=== PATIENT | male | born 1975 | race Caucasian/White ===

== ENCOUNTER → 2016-09-27 | Outpatient (CLI) | payer OTHER ==
--- NOTE | 2016-09-27 14:45 | MR ---
EXAMINATION TYPE: MR lumbar spine wo con DATE OF EXAM: 09/27/2016 COMPARISON: 08/05/2014 HISTORY: Low back pain CONTRAST: 0 mL intravenous MultiHance. TECHNIQUE: Multiplanar, multisequence images of the lumbar spine were acquired. FINDINGS: L5-S1: No significant disc bulge or disc herniation. No spinal canal stenosis. No foraminal stenosi s. . L4-L5: No significant disc bulge or disc herniation. No spinal canal stenosis. No foraminal stenosi s. . L3-L4: No significant disc bulge or disc herniation. No spinal canal stenosis. No foraminal stenosi s. . L2-L3: Minimal disc bulging is anterior thecal sac flattening. No AP spinal canal stenosis present. D isc desiccation is present. L1-L2: Mild central and left paracentral disc bulge has mild anterior thecal sac compression. No AP s alexandra canal stenosis present. Minimal central subligamentous disc extension may be present. This has minimal anterior thecal sac compression. No cord contact is evident. No spinal canal stenosis. No f oraminal stenosis. T12-L1: No significant disc bulge or disc herniation. No spinal canal stenosis. No foraminal stenos is. . Disc desiccation is present L1-2 and L2-3. Findings appear stable from comparison. IMPRESSION: 1. Minimal central and left paracentral disc bulge with anterior thecal sac flattening L1-2. 2. Minimal disc bulge with anterior thecal sac flattening L2-3. 3. Exam is stable from 08/05/2014 MRI lumbar spine
== END | disposition home or self-care (01) ==
LOC: RADMRIMAIN 08:05
PROVIDERS: ATTEND Nurse Practitioner Acute Care
DX: M51.26 Other intervertebral disc displacement, lumbar region (principal)
CPT/HCPCS: 72148

== ENCOUNTER → 2017-08-23 | Outpatient (CLI) | payer OTHER ==
--- NOTE | 2017-08-23 11:24 | MR ---
EXAMINATION TYPE: MR thoracic spine wo con DATE OF EXAM: 08/23/2017 COMPARISON: 08/05/14 HISTORY: Back pain Standard multiplanar, multisequence MRI departmental protocol Multiplanar, multisequence images of the thoracic spine were acquired. Diffusion weighted imaging was performed. FINDINGS: The thoracic spine maintains normal vertebral body heights and alignment. Multilevel Schmor l's nodes are noted with intervertebral disc desiccation most pronounced within the lower thoracic sp ine. Small vertebral body hemangiomas are seen that are T2/T1 hyperintense and benign. Spinal cord si gnal is within normal limits throughout. No extradural fluid collection is identified. T1-T7: No significant disc disease, spinal canal stenosis or neural foraminal narrowing. T7-T8: Small right eccentric disc bulge creates mild right neural foraminal narrowing. No spinal sonia l stenosis or left neural foraminal narrowing. T8-T9: Intervertebral disc desiccation is seen in addition to the known very small right paracentral disc herniation without spinal canal stenosis or neural foraminal narrowing. T9-T10: Disc desiccation is seen without spinal canal stenosis or neural foraminal narrowing. T10-T11: There is a small broad-based disc bulge without spinal canal stenosis or neural foraminal na rrowing. T11-T12: Disc desiccation without spinal canal stenosis or neural foraminal narrowing. IMPRESSION: 1. New small right eccentric disc bulge at T7-T8 creating mild right neural foraminal narrowing. 2. Unchanged very small right paracentral disc herniation at T8-T9 in comparison to 2015 without neur al foraminal narrowing or spinal canal stenosis. 3. Mild multilevel degenerative disc disease without spinal canal stenosis, vertebral body height los s or malalignment.
== END | disposition home or self-care (01) ==
LOC: RADMRIMAIN 08:57
PROVIDERS: ATTEND Psychiatry & Neurology Neurology
DX: M99.72 Connective tissue and disc stenosis of intervertebral foramina of thoracic region (principal); M51.24 Other intervertebral disc displacement, thoracic region; M51.34 Other intervertebral disc degeneration, thoracic region
CPT/HCPCS: 72146

== ENCOUNTER → 2018-03-05 | Outpatient (CLI) | payer OTHER ==
--- NOTE | 2018-03-07 09:32 | P.ARTDOP ---
Arterial Doppler LOWER EXTREMITY ARTERIAL DOPPLER: DATE OF SERVICE: 03/05/2018 Reason for study: Toe numbness with discoloration. Doppler waveforms: Multiphasic bilaterally throughout. Pulse volume recording: Normal configuration. Pressure gradients: None. Ankle-brachial indices: Greater than 1 bilaterally. Toe pressures: 86 on the right, 74 on the left Impression: Normal study.
== END | disposition home or self-care (01) ==
LOC: RADUSWWP 13:59
PROVIDERS: ATTEND Family Medicine
DX: I73.89 Other specified peripheral vascular diseases (principal); R20.9 Unspecified disturbances of skin sensation; E11.9 Type 2 diabetes mellitus without complications
CPT/HCPCS: 93923

== ENCOUNTER → 2018-03-05 | Outpatient (CLI) | payer OTHER | END | disposition home or self-care (01) | LOC: LABWHC1 10:50 | PROVIDERS: ATTEND Nurse Practitioner Acute Care | DX: Z01.812 Encounter for preprocedural laboratory examination (principal) | CPT/HCPCS: 36415; 82565; 84520 ==

== ENCOUNTER → 2019-01-24 | Outpatient (CLI) | payer OTHER ==
[2019-01-24 16:52] LABS: Appearance,Urine Clear (Clear); Bilirubin,Urine Negative (Negative); Blood,Urine Negative (Negative); Color,Urine Yellow; Glucose,Urine (UA) Negative (Negative); Ketones,Urine Negative (Negative); Leukocyte Esterase,Urine Negative (Negative); Nitrite,Urine Negative (Negative); PH, Urine 6.5 (5.0-8.0); Protein,Urine Negative (Negative); Urobilinogen,Urine <2.0 mg/dL (<2.0)
[2019-01-24 16:53] LABS: Basophils % (A) 0 %; Eosinophils # (A) 0.1 k/uL (0-0.7); Eosinophils % (A) 1 %; HCT 39.3 % (39.0-53.0); HGB 12.9 gm/dL (13.0-17.5); Lymphocytes # (A) 1.4 k/uL (1.0-4.8); Lymphocytes % (A) 30 %; MCH 28.5 pg (25.0-35.0); MCHC 32.9 g/dL (31.0-37.0); MCV 86.7 fL (80.0-100.0); Mean Platelet Volume 8.7; Monocytes # (A) 0.3 k/uL (0-1.0); Monocytes % (A) 6 %; Neutrophils # (A) 2.9 k/uL (1.3-7.7); Neutrophils % (A) 60 %; Platelet Count 204 k/uL (150-450); RBC 4.53 m/uL (4.30-5.90); RDW 12.4 % (11.5-15.5); WBC 4.9 k/uL (3.8-10.6)
[2019-01-25 00:27] LABS: Albumin 4.4 g/dL (3.80-4.90); Albumin/Globulin Ratio 2.44 (1.60-3.17); Anion Gap 7.8 mmol/L (4.00-12.00); Carbon Dioxide 27.2 mmol/L (21.6-31.8); Globulin 1.8 g/dL (1.6-3.3); Non-African American GFR(CKD) 107.9 (60.0-200.0); Potassium 4.1 mmol/L (3.5-5.5); Total Bilirubin 0.2 mg/dL (0.3-1.2); Total Protein 6.2 g/dL (6.2-8.2)
== END | disposition home or self-care (01) ==
LOC: LABWHC1 16:27
PROVIDERS: ATTEND Neurological Surgery
DX: M50.123 Cervical disc disorder at C6-C7 level with radiculopathy (principal)
CPT/HCPCS: 36415; 80053; 81003; 85025; 85730; 86850; 86900; 86901; 87070

== ENCOUNTER 2019-02-06 02:35 | Emergency (ER) | payer OTHER ==
[2019-02-06] MEDS ORDERED: SODIUM CHLORIDE 0.9% 1,000 ML IV STA (03:10)
[2019-02-06] MEDS ORDERED: ONDANSETRON 4 MG/2 ML VIAL IVP STA (03:10)
[2019-02-06 03:35] LABS: Basophils % (A) 0 %; Eosinophils # (A) 0.1 k/uL (0-0.7); Eosinophils % (A) 1 %; HCT 40.2 % (39.0-53.0); HGB 13.8 gm/dL (13.0-17.5); Lymphocytes # (A) 1.4 k/uL (1.0-4.8); Lymphocytes % (A) 13 %; MCH 29.3 pg (25.0-35.0); MCHC 34.3 g/dL (31.0-37.0); MCV 85.5 fL (80.0-100.0); Mean Platelet Volume 9.1; Monocytes # (A) 0.6 k/uL (0-1.0); Monocytes % (A) 5 %; Neutrophils # (A) 8.7 k/uL (1.3-7.7); Neutrophils % (A) 79 %; Platelet Count 249 k/uL (150-450); RDW 12.6 % (11.5-15.5); WBC 10.9 k/uL (3.8-10.6)
--- NOTE | 2019-02-06 03:44 | ED ---
Nausea/Vomiting/Diarrhea HPI - General Chief complaint: Nausea/Vomiting/Diarrhea Stated complaint: post-op complications, nausea Time Seen by Provider: 02/06/19 03:10 Source: patient Mode of arrival: ambulatory Limitations: no limitations - History of Present Illness Initial comments: Jose Miguel is a previously healthy 43-year-old male presents the emergency department today for evaluation of sudden onset of nausea, vomiting and vertigo. Patient reports that he was up late doing gifts with children when he developed nausea and vomiting. He then noted that he became very dizzy felt like the room was spinning around him. Patient states that he had multiple episodes of nonbloody nonbilious emesis. He then sat with his head between his knees and relax for a while, he began to feel better but not completely resolved so he decided to drive himself to the ER for evaluation. Upon evaluation patient reports that the spinning sensation has improved significantly and that he no longer feels like he could vomit because he feels his stomach symptoms but he does feel somewhat nauseated. Patient can identify any exacerbating or relieving factors. Reports this came on suddenly resolves suddenly. He does express concern that this may be related to something he ate. Patient states that his primary reason for coming the ER is because he had a recent cervical spinal fusion and wanted to make sure that he didn't injure himself vomiting. - Related Data Home Medications Medication Instructions Recorded Confirmed ALPRAZolam [Xanax] 0.25 mg PO Q8H PRN 02/19/14 09/21/15 Primidone [Mysoline] 50 mg PO HS 02/19/14 09/21/15 Sertraline [Zoloft] 150 mg PO DAILY 02/19/14 09/21/15 HYDROcodone/APAP 7.5-325MG [[place] 1 tab PO BID 07/06/15 09/21/15 7.5] Morphine Sulfate [Ms Contin] 15 mg PO Q12HR 07/06/15 09/21/15 Omeprazole 40 mg PO AC-BRKFST 07/06/15 09/21/15 metFORMIN HCL [Glucophage] 500 mg PO DAILY 09/21/15 09/21/15 Previous Rx's Medication Instructions Recorded Meclizine [Antivert] 25 mg PO TID PRN #12 tab 02/06/19 Allergies Allergy/AdvReac Type Severity Reaction Status Date / Time Gadolinium-Containing Allergy Unknown Verified 02/06/19 02:48 Contrast Medi Childhood Review of Systems ROS Statement: Those systems with pertinent positive or pertinent negative responses have been documented in the HPI. ROS Other: All systems not noted in ROS Statement are negative. Past Medical History Past Medical History: Asthma, GERD/Reflux, Musculoskeletal Disorder, Neurologic Disorder, Osteoarthritis (OA) Additional Past Medical History / Comment(s): disc problems back, hand tremors History of Any Multi-Drug Resistant Organisms: None Reported Past Surgical History: Orthopedic Surgery Additional Past Surgical History / Comment(s): arthroscopy right knee AND LEFT KNEE,right shoulder surg. LEFT WRIST VASCULAR SX , c-spine Past Anesthesia/Blood Transfusion Reactions: No Reported Reaction Past Psychological History: Anxiety Smoking Status: Never smoker Past Alcohol Use History: Occasional Past Drug Use History: None Reported General Exam - General Exam Comments Initial Comments: Physical Exam GENERAL: Patient is well-developed and well-nourished. Patient is nontoxic and well-hydrated and is in no distress. HENT: Normocephalic, Atraumatic. EYES: PERRL, EOMI PULMONARY: Unlabored respirations. No audible rales rhonchi or wheezing was noted. CARDIOVASCULAR: There is a regular rate and rhythm without any murmurs gallops or rubs. ABDOMEN: Soft and nontender with normal bowel sounds. SKIN: Skin is clear with no lesions or rashes and otherwise unremarkable. : Deferred NEUROLOGIC: Patient is alert and oriented x3. Moving all extremities spontaneously No reproducible or change in his symptoms, no nystagmus elicited during head turning Normal finger-nose Normal heel barrera MUSCULOSKELETAL: Normal extremities with adequate strength and full range of motion. No lower extremity swelling or edema. No calf tenderness. PSYCHIATRIC: Normal psychiatric evaluation. Limitations: no limitations Course Vital Signs 02/06/19 02/06/19 02/06/19 02:45 03:48 06:05 Temperature 97.9 F 98.7 F 97.8 F Pulse Rate 122 H 100 88 Respiratory 22 18 18 Rate Blood Pressure 146/82 122/60 132/72 O2 Sat by Pulse 99 100 100 Oximetry Medical Decision Making - Medical Decision Making Patient was seen and evaluated history is of pain from the patient Patient with sudden onset of vertigo while unwrapping presents with his children, nausea and vomiting associated with vertigo, symptoms seem to be relieved upon arrival. Patient's neurologic exam is unremarkable. Labs were reviewed patient was given IV fluids upon reevaluation patient is having minimal symptoms. He is given meclizine and CT angiogram of the head and neck were obtained patient does state that he had a MRI of the brain a couple of months ago when he was expressing what he referred to as lightening shocks of vision. CTA with no acute findings. Patient was reevaluated and reports complete resolution of symptoms after Antivert at this time he feels comfortable with plan for discharge home. An additional 50 mg dose of Antivert was ordered for the patient to take home as it is and is concerned he would not have access to a pharmacy. Patient was given a prescription for Antivert discharged home in stable condition. She was asymptomatic at the time of di becca. - Lab Data Result diagrams: 02/06/19 03:21 02/06/19 03:21 Lab Results 02/06/19 02/06/19 02/06/19 Range/Units 03:21 03:21 03:28 WBC 10.9 H (3.8-10.6) k/uL RBC 4.70 (4.30-5.90) m/uL Hgb 13.8 (13.0-17.5) gm/dL Hct 40.2 (39.0-53.0) % MCV 85.5 (80.0-100.0) fL MCH 29.3 (25.0-35.0) pg MCHC 34.3 (31.0-37.0) g/dL RDW 12.6 (11.5-15.5) % Plt Count 249 (150-450) k/uL Neutrophils % 79 % Lymphocytes % 13 % Monocytes % 5 % Eosinophils % 1 % Basophils % 0 % Neutrophils # 8.7 H (1.3-7.7) k/uL Lymphocytes # 1.4 (1.0-4.8) k/uL Monocytes # 0.6 (0-1.0) k/uL Eosinophils # 0.1 (0-0.7) k/uL Basophils # 0.0 (0-0.2) k/uL Sodium 140 (137-145) mmol/L Potassium 4.4 (3.5-5.1) mmol/L Chloride 103 (98-107) mmol/L Carbon Dioxide 26 (22-30) mmol/L Anion Gap 11 mmol/L BUN 18 (9-20) mg/dL Creatinine 0.71 (0.66-1.25) mg/dL Est GFR (CKD-EPI)AfAm >90 (>60 ml/min/1.73 sqM) Est GFR (CKD-EPI)NonAf >90 (>60 ml/min/1.73 sqM) Glucose 190 H (74-99) mg/dL Calcium 9.4 (8.4-10.2) mg/dL Total Bilirubin 0.4 (0.2-1.3) mg/dL AST 28 (17-59) U/L ALT 37 (4-49) U/L Alkaline Phosphatase 92 (38-126) U/L Total Protein 7.4 (6.3-8.2) g/dL Albumin 4.4 (3.5-5.0) g/dL Lipase 71 (23-300) U/L Influenza Type A RNA Not Detected (Not Detectd) Influenza Type B (PCR) Not Detected (Not Detectd) Disposition Clinical Impression: Vertigo Disposition: HOME SELF-CARE Condition: Stable Instructions (If sedation given, give patient instructions): Acute Nausea and Vomiting (ED) Prescriptions: Meclizine [Antivert] 25 mg PO TID PRN #12 tab PRN Reason: Vertigo Is patient prescribed a controlled substance at d/c from ED?: No Referrals: Long Yost Jr, DO [Primary Care Provider] - 1-2 days
[2019-02-06 03:51] LABS: ALT 37 U/L (4-49); AST 28 U/L (17-59); African American GFR (CKD) >90 (>60 ml/min/1.73 sqM); Albumin 4.4 g/dL (3.5-5.0); Alkaline Phosphatase 92 U/L (38-126); Anion Gap 11 mmol/L; Blood Urea Nitrogen 18 mg/dL (9-20); Calcium 9.4 mg/dL (8.4-10.2); Carbon Dioxide 26 mmol/L (22-30); Chloride 103 mmol/L (98-107); Glucose 190 mg/dL (74-99); Non-African American GFR(CKD) >90 (>60 ml/min/1.73 sqM); Potassium 4.4 mmol/L (3.5-5.1); Sodium 140 mmol/L (137-145); Total Bilirubin 0.4 mg/dL (0.2-1.3); Total Protein 7.4 g/dL (6.3-8.2)
[2019-02-06 03:56] VITALS: RESP 18
[2019-02-06] MEDS ORDERED: MECLIZINE 12.5 MG TAB PO STA ×2 (04:38→05:57)
--- NOTE | 2019-02-06 05:46 | CT ---
EXAM: CT Angiography Head With Intravenous Contrast CLINICAL HISTORY: Its. reason CT Reason: vertigo TECHNIQUE: Axial computed tomographic angiography images of the head with intravenous contrast using CT angiography protocol. This CT exam was performed using one or more of the following dose reduction techniques: automated exposure control, adjustment of the mA and/or kV according to patient size, and/or use of iterative reconstruction technique. MIP reconstructed images were created and reviewed. COMPARISON: No relevant prior studies available. FINDINGS: Right internal carotid artery: No acute findings. Intracranial segment is patent with no significant stenosis. No aneurysm. Right anterior cerebral artery: Unremarkable. No occlusion or significant stenosis. No aneurysm. Right middle cerebral artery: Unremarkable. No occlusion or significant stenosis. No aneurysm. Right posterior cerebral artery: origin of the right posterior cerebral artery. No occlusion or significant stenosis. No aneurysm. Right vertebral artery: Small right vertebral artery terminates in posterior inferior cerebellar artery. Left internal carotid artery: No acute findings. Intracranial segment is patent with no significant stenosis. No aneurysm. Left anterior cerebral artery: Unremarkable. No occlusion or significant stenosis. No aneurysm. Left middle cerebral artery: Unremarkable. No occlusion or significant stenosis. No aneurysm. Left posterior cerebral artery: Unremarkable. No occlusion or significant stenosis. No aneurysm. Left vertebral artery: Dominant left vertebral artery. Basilar artery: Unremarkable. No occlusion or significant stenosis. No aneurysm. IMPRESSION: No large vessel occlusion or aneurysm. EXAM: CT Angiography Neck With Intravenous Contrast CLINICAL HISTORY: Its. reason CT Reason: vertigo TECHNIQUE: Axial computed tomographic angiography images of the neck with intravenous contrast using CT angiography protocol. This CT exam was performed using one or more of the following dose reduction techniques: automated exposure control, adjustment of the mA and/or kV according to patient size, and/or use of iterative reconstruction technique. MIP reconstructed images were created and reviewed. COMPARISON: No relevant prior studies available. FINDINGS: VASCULATURE: Right common carotid artery: Unremarkable. No significant stenosis. No dissection or occlusion. Right internal carotid artery: There is some noncalcified plaque in the bilateral carotid bifurcations, proximal internal carotid arteries. Approximately 40% narrowing of the proximal right internal carotid artery. Right external carotid artery: Unremarkable. No occlusion. Right vertebral artery: Unremarkable. No significant stenosis. No dissection or occlusion. Left common carotid artery: Unremarkable. No significant stenosis. No dissection or occlusion. Left internal carotid artery: Less than 10% narrowing of the proximal left internal carotid artery. Left external carotid artery: Unremarkable. No occlusion. Left vertebral artery: Dominant left vertebral artery. No significant stenosis. No dissection or occlusion. NECK: Bones/joints: Interbody fusion at C6-7. No acute fracture. No dislocation. Soft tissues: Unremarkable as visualized. No mass. CAROTID STENOSIS REFERENCE USING NASCET CRITERIA: % ICA stenosis = (1 - narrowest ICA diameter/diameter of distal cervical ICA) x 100. Mild - <50% stenosis. Moderate - 50-69% stenosis. Severe - 70-94% stenosis. Near occlusion - 95-99% stenosis. Occluded - 100% stenosis. IMPRESSION: No significant stenosis of the carotid or vertebral arteries. No dissection.
[2019-02-06 06:07] VITALS: BP 132/72; PULSE 88; TEMP 97.8
== END 2019-02-06 06:07 | disposition home or self-care (01) ==
LOC: EC 02:35
DX: R42 Dizziness and giddiness (principal); R11.2 Nausea with vomiting, unspecified; R19.7 Diarrhea, unspecified; K21.9 Gastro-esophageal reflux disease without esophagitis; M19.90 Unspecified osteoarthritis, unspecified site; F41.9 Anxiety disorder, unspecified; Z79.891 Long term (current) use of opiate analgesic; Z79.84 Long term (current) use of oral hypoglycemic drugs; Z79.899 Other long term (current) drug therapy; Z91.041 Radiographic dye allergy status; Z98.1 Arthrodesis status
CPT/HCPCS: 36415; 80053; 83690; 85025; 87502; 70496; 70498; 99284; 96374; 96361; J2405; Q9967

== ENCOUNTER 2023-04-20 10:02 | Emergency (ER) | payer OTHER ==
[2023-04-20 10:14] VITALS: RESP 18
--- NOTE | 2023-04-20 10:32 | ED ---
Back Pain HPI - General Chief Complaint: Back Pain/Injury Stated Complaint: Back pain Time Seen by Provider: 04/20/23 10:31 Source: patient, EMS, RN notes reviewed Limitations: no limitations - History of Present Illness Initial Comments: Patient is a 48-year-old male presented to the ER via EMS with chief complaint of back pain. Patient follows up with Dr. Sharma and receives morphine, norco and gabapentin. He has a known history of multiple herniated disks. He states he missed his appointment to refill his prescription. He states he called Dr. Sharma's office and is waiting for them to return his call. He has been out of his morphine for about a day. He took his norco and gabapentin today. he is endorsing body aches, nausea, vomiting and diarrhea. He states he is having generalized abdominal pain. Denies any new injuries, new symptoms with his back pain. Denies any saddle paresthesias, bowel or bladder incontinence, fevers, IV drug use. - Related Data Home Medications Medication Instructions Recorded Confirmed ALPRAZolam [Xanax] 0.25 mg PO Q8H PRN 02/19/14 09/21/15 Primidone [Mysoline] 50 mg PO HS 02/19/14 09/21/15 Sertraline [Zoloft] 150 mg PO DAILY 02/19/14 09/21/15 HYDROcodone/APAP 7.5-325MG [[place] 1 tab PO BID 07/06/15 09/21/15 7.5] Morphine Sulfate [Ms Contin] 15 mg PO Q12HR 07/06/15 09/21/15 Omeprazole 40 mg PO AC-BRKFST 07/06/15 09/21/15 metFORMIN HCL [Glucophage] 500 mg PO DAILY 09/21/15 09/21/15 Previous Rx's Medication Instructions Recorded Meclizine [Antivert] 25 mg PO TID PRN #12 tab 02/06/19 Allergies Allergy/AdvReac Type Severity Reaction Status Date / Time Gadolinium-Containing Allergy Unknown Verified 02/06/19 02:48 Contrast Medi Childhood Review of Systems ROS Statement: Those systems with pertinent positive or pertinent negative responses have been documented in the HPI. ROS Other: All systems not noted in ROS Statement are negative. Past Medical History Past Medical History: Asthma, GERD/Reflux, Musculoskeletal Disorder, Neurologic Disorder, Osteoarthritis (OA) Additional Past Medical History / Comment(s): disc problems back, hand tremors History of Any Multi-Drug Resistant Organisms: None Reported Past Surgical History: Orthopedic Surgery Additional Past Surgical History / Comment(s): arthroscopy right knee AND LEFT KNEE,right shoulder surg. LEFT WRIST VASCULAR SX , c-spine Past Anesthesia/Blood Transfusion Reactions: No Reported Reaction Past Psychological History: Anxiety Past Alcohol Use History: Occasional Past Drug Use History: None Reported General Exam Limitations: no limitations General appearance: alert, in no apparent distress, other (Patient lying in position and frequently moving) Head exam: Present: atraumatic, normocephalic, normal inspection Neck exam: Present: normal inspection. Absent: tenderness, meningismus, lymphadenopathy Respiratory exam: Present: normal lung sounds bilaterally. Absent: respiratory distress, wheezes, rales, rhonchi, stridor Cardiovascular Exam: Present: regular rate, normal rhythm, normal heart sounds. Absent: systolic murmur, diastolic murmur, rubs, gallop, clicks GI/Abdominal exam: Present: soft, tenderness (generalized), normal bowel sounds Back exam: Present: normal inspection Neurological exam: Present: alert, oriented X3, CN II-XII intact Psychiatric exam: Present: normal affect, normal mood Skin exam: Present: warm, dry, intact, normal color. Absent: rash Course Vital Signs 04/20/23 04/20/23 04/20/23 10:09 11:13 12:44 Temperature 98.1 F 98 F Pulse Rate 91 80 98 Respiratory 18 18 18 Rate Blood Pressure 133/91 148/106 157/97 O2 Sat by Pulse 93 L 98 100 Oximetry Medical Decision Making - Medical Decision Making Was pt. sent in by a medical professional or institution (, PA, TYPO MACHINE OPERATOR, urgent care, hospital, or shelter...) When possible be specific @ -No Did you speak to anyone other than the patient for history (EMS, parent, family, police, friend...)? What history was obtained from this source @ -No Did you review nursing and triage notes (agree or disagree)? Why? @ -I reviewed and agree with nursing and triage notes Were old charts reviewed (outside hosp., previous admission, EMS record, old EKG, old radiological studies, urgent care reports/EKG's, shelter records)? Report findings @ -No old charts were reviewed Differential Diagnosis (chest pain, altered mental status, abdominal pain women, abdominal pain men, vaginal bleeding, weakness, fever, dyspnea, syncope, headache, dizziness, GI bleed, back pain, seizure, CVA, palpatations, mental health, musculoskeletal)? @ -Differential Back Pain:Strain, zoster, cauda equina syndrome, epidural abs cess, vertebral osteomyelitis, discitis, fracture, subluxation, disc herniation, DJD, spinal stenosis, dissection, AAA, pancreatitis, peptic ulcer disease, pyelonephritis, kidney stone, this is not meant to be an all-inclusive list. EKG interpreted by me (3pts min.). @ -None X-rays interpreted by me (1pt min.). @ -None done CT interpreted by me (1pt min.). @ -None done U/S interpreted by me (1pt. min.). @ -None done What testing was considered but not performed or refused? (CT, X-rays, U/S, labs)? Why? @ -Back imaging considered but not performed as patient has had no new injuries. No red flag back pain symptoms negative cauda equina syndrome. What meds were considered but not given or refused? Why? @ -None Did you discuss the management of the patient with other professionals (prof ye i.eEdmund Palmer, PA, TYPO MACHINE OPERATOR, lab, RT, psych nurse, geriatric social worker, assembler fishing floats, teacher, radiation officer, upper caser)? Give summary @ -No Was smoking cessation discussed for >3mins.? @ -No Was critical care preformed (if so, how long)? @ -No Were there social determinants of health that impacted care today? How? (Homelessness, low income, unemployed, alcoholism, drug addiction, transportation, low edu. Level, literacy, decrease access to med. care, [facility], rehab)? @ -No Was there de-escalation of care discussed even if they declined (Discuss DNR or withdrawal of care, Hospice)? DNR status @ -No What co-morbidities impacted this encounter? (DM, HTN, Smoking, COPD, CAD, Cancer, CVA, ARF, Chemo, Hep., AIDS, mental health diagnosis, sleep apnea, morbid obesity)? @ -Chronic back pain on morphine, [place] and gabapentin Was patient admitted / discharged? Hospital course, mention meds given and rou te, prescriptions, significant lab abnormalities, going to OR and other pertinent info. @ -Discharged. Patient is a 48 year old male presenting to the ER with a cheif complaint of vomiting due to back pain. He also is reporting diarrhea and chills. History and physical exam were completed. Vitals stable. Patient laying in position and moving frequently during exam. He report it is from the pain. No red flag back pain symptoms indictive of cauda equina syndrome. Labs obtained significant for white blood cell count of 15.2 which is likely reactive due to vomiting and diarrhea. Other labs unremarkable. It is believed patient is going through withdrawal as he has not had his morphine in the past days. Patient received IV angelsics and antiemetics with improvement of pain. Results discussed with patient, all questions answered. Advised him to follow-up with Dr. Sharma in the next 1-2 days. Discharged with starter pack of Zofran. Return parameters discussed. Patient discharged stable condition with follow-up to Dr. Sharma. Patient expressed understanding and agreement with care plan. Undiagnosed new problem with uncertain prognosis? @ -No Drug Therapy requiring intensive monitoring for toxicity (Heparin, Nitro, Insulin, Cardizem)? @ -No Were any procedures done? @ -No Diagnosis/symptom? @ -Back pain/opiate withdrawal Acute, or Chronic, or Acute on Chronic? @ -Acute Uncomplicated (without systemic symptoms) or Complicated (systemic symptoms)? @ -Uncomplicated Side effects of treatment? @ -No Exacerbation, Progression, or Severe Exacerbation? @ -No Poses a threat to life or bodily function? How? (Chest pain, [place], [place], pneumonia, PE, COPD, DKA, ARF, appy, cholecystitis, CVA, Diverticulitis, Homicidal, Suicidal, threat to staff... and all critical care pts) @ -No - Lab Data Result diagrams: 04/20/23 10:47 04/20/23 10:47 Lab Results 04/20/23 04/20/23 Range/Units 10:47 10:47 WBC 15.2 H (3.8-10.6) k/uL RBC 4.52 (4.30-5.90) m/uL Hgb 13.5 (13.0-17.5) gm/dL Hct 40.5 (39.0-53.0) % MCV 89.6 (80.0-100.0) fL MCH 29.9 (25.0-35.0) pg MCHC 33.4 (31.0-37.0) g/dL RDW 12.7 (11.5-15.5) % Plt Count 151 (150-450) k/uL MPV 9.9 Sodium 144 (137-145) mmol/L Potassium 3.6 (3.5-5.1) mmol/L Chloride 118 H (98-107) mmol/L Carbon Dioxide 18 L (22-30) mmol/L Anion Gap 8 mmol/L BUN 16 (9-20) mg/dL Creatinine 0.46 L (0.66-1.25) mg/dL Est GFR (CKD-EPI)AfAm >90 (>60 ml/min/1.73 sqM) Est GFR (CKD-EPI)NonAf >90 (>60 ml/min/1.73 sqM) Glucose 139 H (74-99) mg/dL Calcium 7.8 L (8.4-10.2) mg/dL Total Bilirubin 0.8 (0.2-1.3) mg/dL AST 35 (17-59) U/L ALT 24 (4-49) U/L Alkaline Phosphatase 91 (38-126) U/L Total Protein 6.2 L (6.3-8.2) g/dL Albumin 3.7 (3.5-5.0) g/dL Disposition Clinical Impression: Back pain Disposition: HOME SELF-CARE Condition: Stable Instructions (If sedation given, give patient instructions): Back Pain (ED) Additional Instructions: Please follow-up with Dr. Sharma. Return to the ER for any new or worsening symptoms. Is patient prescribed a controlled substance at d/c from ED?: No Referrals: Long Yost Jr, [Primary Care Provider] - 1-2 days Time of Disposition: 11:42
[2023-04-20] MEDS: MORPHINE SULFATE 2 MG/ML SYRINGE IVP ONE (10:37)
[2023-04-20] MEDS: METOCLOPRAMIDE 5 MG/ML 2 ML VIAL IVP STA (10:39)
[2023-04-20] MEDS: SODIUM CHLORIDE 0.9% 1,000 ML IV STA (10:40)
[2023-04-20 10:59] LABS: HCT 40.5 % (39.0-53.0); HGB 13.5 gm/dL (13.0-17.5); MCH 29.9 pg (25.0-35.0); MCHC 33.4 g/dL (31.0-37.0); MCV 89.6 fL (80.0-100.0); Mean Platelet Volume 9.9; Platelet Count 151 k/uL (150-450); RBC 4.52 m/uL (4.30-5.90); RDW 12.7 % (11.5-15.5); WBC 15.2 k/uL (3.8-10.6)
[2023-04-20 11:15] LABS: ALT 24 U/L (4-49); AST 35 U/L (17-59); African American GFR (CKD) >90 (>60 ml/min/1.73 sqM); Albumin 3.7 g/dL (3.5-5.0); Alkaline Phosphatase 91 U/L (38-126); Anion Gap 8 mmol/L; Blood Urea Nitrogen 16 mg/dL (9-20); Calcium 7.8 mg/dL (8.4-10.2); Carbon Dioxide 18 mmol/L (22-30); Chloride 118 mmol/L (98-107); Glucose 139 mg/dL (74-99); Non-African American GFR(CKD) >90 (>60 ml/min/1.73 sqM); Sodium 144 mmol/L (137-145); Total Bilirubin 0.8 mg/dL (0.2-1.3); Total Protein 6.2 g/dL (6.3-8.2)
[2023-04-20 11:31] LABS: Potassium 3.6 mmol/L (3.5-5.1)
[2023-04-20] MEDS: PROCHLORPERAZINE INJ 10 MG/2 ML VIAL IVP STA (11:47)
[2023-04-20] MEDS: MORPHINE SULFATE 4 MG/ML SYRINGE IVP STA (11:49)
[2023-04-20] MEDS: ONDANSETRON 4 MG ODT STARTER PACK 2 TAB BTL PO STA (12:33)
[2023-04-20 12:53] VITALS: BP 157/97; PULSE 98; TEMP 98
== END 2023-04-20 12:44 | disposition home or self-care (01) ==
LOC: EC 10:02
DX: M54.9 Dorsalgia, unspecified (principal); J45.909 Unspecified asthma, uncomplicated; K21.9 Gastro-esophageal reflux disease without esophagitis; F41.9 Anxiety disorder, unspecified; M19.90 Unspecified osteoarthritis, unspecified site; Z79.899 Other long term (current) drug therapy; Z79.1 Long term (current) use of non-steroidal anti-inflammatories (NSAID); Z91.041 Radiographic dye allergy status
CPT/HCPCS: 36415; 80053; 85027; 99284; 96374; 96375 ×2; 96376; 96361; J2270 ×2; J0780; J2765; S0119

== ENCOUNTER → 2024-01-03 | Outpatient (CLI) | payer OTHER ==
--- NOTE | 2024-01-03 12:29 | XR ---
EXAMINATION TYPE: XR cervical spine comp DATE OF EXAM: 01/03/2024 11:14 AM COMPARISON: 04/04/2011 CLINICAL INDICATION: Male, 48 years old with history of M54.50 LOW BACK PAIN, UNSPECIFIED M54.2 CERVI CALGI; TECHNIQUE: The cervical spine was imaged in frontal, lateral, odontoid and bilateral oblique. FINDINGS: C6-C7 discectomy device. The osseous structures show normal alignment without evidence of a n acute fracture. There are minimal osteophytes noted throughout the cervical spine on the anterior a nd lateral aspects of the vertebral bodies. The intervertebral disk spaces are narrowed at multiple l evels. Pedicles are intact. Soft tissues are within normal limits. The odontoid appears intact. IMPRESSION: 1. Discectomy at C6-C7. 2. No fracture or dislocation. 3. Mild degenerative disc disease changes of the cervical spine. [facility], , 01/03/2024 12:27 PM
--- NOTE | 2024-01-03 12:52 | XR ---
EXAMINATION TYPE: XR lumbar spine 2 or 3V DATE OF EXAM: 01/03/2024 11:14 AM COMPARISON: None CLINICAL INDICATION: Male, 48 years old with history of M54.50 LOW BACK PAIN, UNSPECIFIED M54.2 CERVI CALGI; [facility] TECHNIQUE: XR lumbar spine 2 or 3V - Frontal, lateral and coned in L5-S1 lateral views of the spine. FINDINGS: No evidence of any acute osseous pathology. No evidence of loss of vertebral body height i s seen. There is normal alignment of the lumbar vertebral bodies. Scattered disc space narrowing. Mul tilevel marginal osteophyte formation throughout the visualized spine. There is facet joint arthropat hy throughout the spine. Scattered at least mild neural foraminal stenosis. IMPRESSION: 1. No acute fracture. 2. Moderate multilevel disc degeneration. [facility], , 01/03/2024 12:49 PM
== END | disposition home or self-care (01) ==
LOC: RADXRMAIN 10:49
PROVIDERS: ATTEND Family Medicine
DX: M50.30 Other cervical disc degeneration, unspecified cervical region (principal); M51.360 Other intervertebral disc degeneration, lumbar region with discogenic back pain only; M99.73 Connective tissue and disc stenosis of intervertebral foramina of lumbar region
CPT/HCPCS: 72050; 72100